=== PATIENT | male | born 1940 | race Caucasian/White ===

== ENCOUNTER 2017-01-30 10:10 | Emergency (ER) | payer OTHER, BC ==
--- NOTE | 2017-01-30 10:19 | PDOC ---
History of Present Illness - General Chief Complaint: Pain Stated Complaint: LEFT HIP PAIN Time Seen by Provider: 01/30/17 10:19 History Source: Patient Exam Limitations: No Limitations - History of Present Illness Initial Comments: 01/30/17 10:29 The patient is a 76-year-old male with a significant past medical history of hypertension, hyperlipidemia, who presents to the emergency department with left -sided, posterior hip pain that began while he was playing tennis. He states that he was running, and stretched for a backhand shot, pivoting at the left hip , and experienced sudden, severe, sharp and stabbing pain. Since that time, he has had continued pain. It is exacerbated by changing position. He denies lower extremity weakness or paresthesias. He did not have blunt trauma. He denies any previous left hip pain. He is able to bear weight on the left lower extremity without any increase in the pain. Past History - Past Medical History Allergies/Adverse Reactions: Allergies Allergy/AdvReac Type Severity Reaction Status Date / Time scallops Allergy Unknown Verified 01/30/17 10:22 Home Medications: Ambulatory Orders Meclizine HCl [Antivert -] 25 mg PO Q6H PRN #10 tablet 07/10/16 Allopurinol [Zyloprim -] 100 mg PO DAILY 01/30/17 Amlodipine Besylate [Norvasc -] 5 mg PO DAILY 01/30/17 Aspirin/Calcium Carbonate/Mag [Aspirin Buffered 325 mg Tab] 325 mg PO DAILY Atorvastatin Ca [Lipitor] 80 mg PO HS 01/30/17 Clopidogrel Bisulfate [Plavix -] 75 mg PO DAILY 01/30/17 Diazepam [Valium] 5 mg PO Q8H PRN #15 tablet MDD 3 01/30/17 Glucosamine Sulfate Dipot Chlr [Glucosamine] 1,000 mg PO DAILY 01/30/17 Magnesium Oxide [Magnesium] 500 mg PO DAILY 01/30/17 Methylprednisolone [Medrol Dose Yoseph] 4 mg PO ASDIR 01/30/17 Metoprolol Succinate [Toprol XL -] 25 mg PO BID 01/30/17 Naproxen [Naprosyn] 500 mg PO BID PRN #20 tablet 01/30/17 Nitroglycerin [Nitrostat] 0.4 mg SL PRN PRN 01/30/17 Anemia: No Asthma: No Cancer: No Cardiac Disorders: No CVA: No COPD: No CHF: No Dementia: No Diabetes: No GI Disorders: Yes (COLONIC POLYPS) Disorders: No HTN: No Hypercholesterolemia: Yes Liver Disease: No Seizures: No Thyroid Disease: No - Surgical History Abdominal Surgery: No Appendectomy: No Cardiac Surgery: No Cholecystectomy: No Lung Surgery: No Neurologic Surgery: No Orthopedic Surgery: Yes - Psycho/Social/Smoking Cessation Hx Anxiety: No Suicidal Ideation: No Smoking History: Never smoked Have you smoked in the past 12 months: No Hx Alcohol Use: No Drug/Substance Use Hx: No Substance Use Type: Alcohol Hx Substance Use Treatment: No Review of Systems - Review of Systems Comments:: 01/30/17 10:30 CONSTITUTIONAL: Absent: fever, chills, fatigue EYES: Absent: visual changes ENT: Absent: ear pain, sore throat CARDIOVASCULAR: Absent: chest pain, palpitations, loss of consciousness RESPIRATORY: Absent: cough, SOB GI: Absent: abdominal pain, nausea, vomiting, constipation, diarrhea GENITOURINARY: Absent: dysuria, frequency, hematuria MUSKULOSKELETAL: Present: See history of present illness Absent: back pain SKIN: Absent: rash NEURO: Absent: headache, dizziness *Physical Exam - Physical Exam Comments: 01/30/17 10:30 GENERAL: Well-appearing, well-nourished. No apparent distress. HEENT: Normocephalic, atraumatic. PERRL, EOM intact. CARDIOVASCULAR: Normal S1, S2. Regular rate and rhythm. PULMONARY: Clear to auscultation bilaterally. ABDOMEN: Soft, non-distended, non-tender. EXTREMITIES: There is no tenderness over the bony prominences the left hip and pelvis, or of the left femur and knee. His pain is reproducible when he pivots at the waist, flexes or extends, or rotates. There is reproducible tenderness to palpation when the soft tissue just posterior to the hip joint is palpated. No gross deformities. SKIN: Warm, dry. No rash NEUROLOGICAL: No focal neurological deficits. Medical Decision Making - Medical Decision Making 01/30/17 10:32 The patient is well-appearing and in no acute distress His mechanism of injury and clinical presentation are quite consistent with muscle strain Will obtain x-ray to rule out occult fracture Clinical impression: Avulsion of the left lesser trochanter Left lateral gluteal muscle strain I discussed the physical exam findings, ancillary test results and final diagnoses with the patient. I answered all of the patient's questions. The patient was satisfied with the care received and felt comfortable with the discharge plan and treatment plan. The patient will call their primary care physician within 24 hours to arrange follow-up and will return to the Emergency Department with any new, persistent or worsening symptoms. 01/30/17 11:01 *DC/Admit/Observation/Transfer Diagnosis at time of Disposition: Muscle strain, Closed avulsion fracture of lesser trochanter of femur - Discharge Dispostion Disposition: HOME Condition at time of disposition: Improved - Prescriptions Prescriptions: Naproxen [Naprosyn] 500 mg PO BID PRN #20 tablet PRN Reason: Pain Diazepam [Valium] 5 mg PO Q8H PRN #15 tablet MDD 3 PRN Reason: Pain - Referrals Referrals: Delfina Winston [Primary Care Provider] - Gerber Thomas MD [Staff Physician] - Call tomorrow Justin Lechuga MD [Staff Physician] - Call tomorrow - Patient Instructions Printed Discharge Instructions: DI for Gluteal Strain, DI for Femoral Fracture Additional Instructions: The x-ray shows that you have an avulsion fracture of the lesser trochanter of the left femur. This was probably caused by strain placed on the bone from the muscle. It is very important that you follow-up with orthopedics for further treatment. I referred you to Dr. Thomas and Dr. Lechuga. Both are orthopedic surgeons. You can see whom ever you prefer. Return to the emergency department immediately with ANY new, persistent or worsening symptoms. You MUST call and follow up with your doctor tomorrow. Please make sure your doctor reviews the results of your emergency department evaluation. Please take the Naprosyn with food and a large glass of water. It is important that you also check your blood pressure while taking it, as it can lead to elevated blood pressures. - Post Discharge Activity Work/School Note: Back to Work
[2017-01-30 10:30] VITALS: BP 150/88; PULSE 55; TEMP 98.5; BMI 29.9
[2017-01-30] MEDS ORDERED: NAPROXEN 500 MG TABLET (FP) PO ONE (10:33)
[2017-01-30] MEDS ORDERED: NAPROXEN 500 MG TABLET (FP) ONE (10:35)
== END 2017-01-30 11:23 | disposition home or self-care (01) ==
LOC: FER 10:10
DX: S72.125A Nondisplaced fracture of lesser trochanter of left femur, initial encounter for closed fracture (principal); E78.00 Pure hypercholesterolemia, unspecified; T14.8 Other injury of unspecified body region; I10 Essential (primary) hypertension; X58.XXXA Exposure to other specified factors, initial encounter; Y93.73 Activity, racquet and hand sports; Y92.9 Unspecified place or not applicable
CPT/HCPCS: 73523-TC; 99282-25

== ENCOUNTER 2020-04-19 07:59 | Emergency (ER) | payer OTHER, BC ==
[2020-04-19 08:07] VITALS: BP 152/96; PULSE 66; TEMP 98.1; BMI 29.9
--- NOTE | 2020-04-19 08:26 | PDOC ---
History of Present Illness - General Chief Complaint: Edema Stated Complaint: right hand swelling Time Seen by Provider: 04/19/20 08:19 History Source: Patient Exam Limitations: No Limitations - History of Present Illness Initial Comments: 04/29/20 02:45 79YOM p/w right index, middle, and ring finger numbness, pain, and swelling. He notes he plays tennis and has been playing more frequently and for longer than usual lately. He played for hours over the past couple of days. He uses his right hand to hold the tennis racket and also is right hand dominant. 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 No chest pain, SOB, abdominal pain, back pain, f/c/n/vc/d/c. No skin changes, no known injury. Past History - Medical History Allergies/Adverse Reactions: Allergies Allergy/AdvReac Type Severity Reaction Status Date / Time scallops Allergy Unknown Verified 01/30/17 10:22 Home Medications: Ambulatory Orders Meclizine HCl [Antivert -] 25 mg PO Q6H PRN #10 tablet 07/10/16 Allopurinol [Zyloprim -] 100 mg PO DAILY 01/30/17 Amlodipine Besylate [Norvasc -] 5 mg PO DAILY 01/30/17 Aspirin/Calcium Carbonate/Mag [Aspirin Buffered 325 mg Tab] 325 mg PO DAILY 01/30/17 Atorvastatin Ca [Lipitor] 80 mg PO HS 01/30/17 Clopidogrel Bisulfate [Plavix -] 75 mg PO DAILY 01/30/17 Diazepam [Valium] 5 mg PO Q8H PRN #15 tablet MDD 3 01/30/17 Glucosamine Sulfate Dipot Chlr [Glucosamine] 1,000 mg PO DAILY 01/30/17 Magnesium Oxide [Magnesium] 500 mg PO DAILY 01/30/17 Metoprolol Succinate [Toprol XL -] 25 mg PO BID 01/30/17 Naproxen [Naprosyn] 500 mg PO BID PRN #20 tablet 01/30/17 Nitroglycerin [Nitrostat] 0.4 mg SL PRN PRN 01/30/17 Methylprednisolone [Medrol Dose Yoseph] 4 mg PO ASDIR #21 tablet 04/19/20 Anemia: No Asthma: No Cancer: No Cardiac Disorders: No CVA: No COPD: No CHF: No Dementia: No Diabetes: No GI Disorders: Yes (COLONIC POLYPS) Disorders: No HTN: No Hypercholesterolemia: Yes Liver Disease: No Seizures: No Thyroid Disease: No - Surgical History Abdominal Surgery: No Appendectomy: No Cardiac Surgery: No Cholecystectomy: No Lung Surgery: No Neurologic Surgery: No Orthopedic Surgery: Yes - Immunization History Immunization Up to Date: Yes - Psycho-Social/Smoking History Smoking History: Never smoked Have you smoked in the past 12 months: No - Substance Abuse Hx (Audit-C & DAST Scrn) How often the patient has a drink containing alcohol: Monthly or less Number of drinks the patient has on a typical day: 1 or 2 How often the patient has six or more drinks on one occasion: Never Score: In Men: 4 or > Positive; In Women: 3 or > Positive: 1 Screen Result (Pos requires Nsg. Audit-10AR): Negative In the last yr the pt used illegal drug/Rx for NonMed reason: No Score: Yes response is considered Positive: 0 Screen Result (Positive result requires Nsg. DAST-10): Negative Review of Systems - Review of Systems Able to Perform ROS?: Yes Comments:: 04/29/20 02:51 GEN: no fever, chills, malaise, or generalized weakness HEENT: no ear pain, congestion, sore throat, vision change, or eye pain CV: no chest pain, palpitations, lightheadedness, syncope, or edema RESP: no SOB, wheezing, or cough GI: no abdominal pain, nausea, vomiting, diarrhea, constipation, or rectal bleed : no dysuria, hematuria, or discharge MSK: right finger numbness/tingling/discomfort/swelling, otherwise no muscle weakness or pain, no joint swelling or pain NEURO: no headache, vertigo, numbness, tingling, or focal weakness PSYCH: no SI, HI, or behavior change SKIN: no jaundice, rash, lesions, or unexplained bruises ROS otherwise negative except as noted in HPI *Physical Exam - Vital Signs Last Vital Signs Temp Pulse Resp BP Pulse Ox 98.1 F 66 16 152/96 100 04/19/20 08:01 04/19/20 08:01 04/19/20 08:01 04/19/20 08:01 04/19/20 08:01 - Physical Exam GENERAL: very pleasant and well-appearing, A/Ox4, no distress, answers questions appropriately HEENT: PERRLA, EOMI, moist mucous membranes NECK/BACK: no midline ttp, no spinal step-off or deformity, no hematoma, full ROM, neck supple CARDIOVASCULAR: regular rate/rhythm, no MGR, strong peripheral pulses, capillary refill <2 seconds, extremities wwp, no edema, radial pulses and ulnar pulses 2+ bilaterally LUNGS/RESPIRATORY: no respiratory distress, CTAB GI/ABDOMEN: symmetric [id number], normoactive BS, soft, no ttp, no midline pulsatile masses : no CVA tenderness MSK/EXTREMITIES: right hand with subjective mild numbness to index, middle, and ring finger palmar surfaces, r/m/u nerve motor intact, tapping the carpal tunnel on the right reproduces numbness/tingling, minimal swelling of digits, otherwise no muscle atrophy, no acute deformity SKIN: warm and dry, no pallor, no jaundice, no rash, no pathologic-appearing bruising, no skin breakdown, no cuts, no lesions NEUROLOGICAL: GCS 15, CN II-XII grossly intact, 5/5 strength proximally and distally, no facial droop Medical Decision Making - Medical Decision Making 04/29/20 02:54 79YOM p/w palm and finger numbness/tingling on right side, patient is right hand dominant and playing tennis frequently. Initial Vital Signs Temp Pulse Resp BP Pulse Ox 98.1 F 66 16 152/96 100 04/19/20 08:01 04/19/20 08:01 04/19/20 08:01 04/19/20 08:01 04/19/20 08:01 Very likely carpel tunnel syndrome, or median neuropathy. Unlikely any other more serious etiology as he has no ssx of cervical radiculopathy (C6-7), brac hial plexopathy, motor neuron disease (e.g. ALS), ligamentous injury, compartment syndrome, CVA/TIA, etc. Provider Orders Category Date Time Status Ibuprofen [Motrin -] Medication 04/19/20 08:36 Discontinued 600 mg PO .STK-MED ONE Ibuprofen [Motrin -] Medication 04/19/20 08:33 Discontinued 600 mg PO ONCE ONE Medications Discontinued Medications Generic Name Dose Route Start Last Admin Trade Name Freq PRN Reason Stop Dose Admin Ibuprofen 600 mg 04/19/20 08:33 Motrin - PO 04/19/20 08:34 ONCE ONE Ibuprofen Confirm 04/19/20 08:36 Motrin - Administered 04/19/20 08:37 Dose 600 mg PO .STK-MED ONE Patient is given a wrist splint and feels much better. This Pt has gotten significant relief of symptoms while in the ED. On last reassessment, vitals are wnl, pain is reasonably controlled, and exam is benign. Workup is not concerning for emergency-level pathology at this time. This Pt is appropriate for discharge with close outPt follow up. They are comfortable with this plan and will follow up with PCP in 1-3 days. Specific return precautions are discussed and they will come back to the ER if necessary. Discharge - Discharge Information Problems reviewed: Yes Clinical Impression/Diagnosis: Carpal tunnel syndrome of right wrist Condition: Stable Disposition: HOME - Admission No - Additional Discharge Information Prescriptions: Methylprednisolone [Medrol Dose Yoseph] 4 mg PO ASDIR #21 tablet - Follow up/Referral Referrals: Adryan Sabillon DO [Staff Physician] - Syed Rodriguez DO [Staff Physician] - Zack Silverio MD [Staff Physician] - - Patient Discharge Instructions Additional Instructions: You were seen in the ER for right finger numbness and swelling of the 2nd, 3rd, and 4th digits. We did a thorough history and physical exam, diagnosed you with right carpal tunnel syndrome, and gave you a wrist splint and Motrin to help. After our assessment, we do not believe you are having a medical emergency at this time, and we believe you are safe to go home. Please follow up with your primary care provider early next week. Call their clinic as soon as possible, tell them you were seen in the ER, and tell them you need an appointment. If you have continued symptoms in 2 weeks, please also follow up with the orthopedist clinic (we are providing referral information in this information packet). If you have any new or worsening symptoms, especially worsening swelling of those fingers, significant pain, or numbness that spreads up to your right shoulder or other areas, please come back to the ER at any time (24 hours a day). If you are having severe or life threatening symptoms, or symptoms that make it unsafe to drive or have someone drive you, please call 911. To take care of your carpal tunnel syndrome at home, do the following: Do not overuse the affected wrist - try not to hold your phone with it, rest it on tables/desks, etc. Use the wrist splint we gave you, especially at night, and make sure it is not putting too much pressure on your wrist. 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 Also use the following [id number] medication regimen... Use the following medication schedule during waking hours at home for the next week: At hour 0 (when you get home), take Tylenol 650 mg (two regular strength pills) At hour 3, take ibuprofen 600 mg (three regular strength pills) At hour 6, take Tylenol 650 mg (two regular strength pills) At hour 9, take ibuprofen 600 mg (three regular strength pills) Etc. - Post Discharge Activity
[2020-04-19] MEDS ORDERED: IBUPROFEN 600 MG TABLET (FP) PO ONE ×2 (08:33→08:36)
== END 2020-04-19 08:45 | disposition home or self-care (01) ==
LOC: FER 07:59
DX: G56.01 Carpal tunnel syndrome, right upper limb (principal)
CPT/HCPCS: 99283-25

== ENCOUNTER 2020-06-26 15:59 | Emergency (ER) | payer OTHER, BC ==
[2020-06-26 16:51] VITALS: BP 149/88; PULSE 72; TEMP 99.3; BMI 25.7
[2020-06-26 18:18] LABS: ALBUMIN 3.9 g/dl (3.4-5.0); ALK PHOS 70 U/L (45-117); ANION GAP 7 MMOL/L (8-16); BILIRUBIN,TOTAL 0.5 mg/dl (0.2-1); CALCIUM 8.8 mg/dl (8.5-10); CHLORIDE 110 mmol/L (98-107); CO2 23 mmol/L (21-32); CREATININE 1.1 mg/dl (0.55-1.3); GLUCOSE,RANDOM 110 mg/dl (74-106); POTASSIUM 4.1 mmol/L (3.5-5.1); SGOT/AST 22 U/L (15-37); SGPT/ALT 28 U/L (13-61); SODIUM 140 mmol/L (136-145); TOT PROT 6.8 g/dl (6.4-8.2)
[2020-06-26 18:19] LABS: BASO % 1.6 % (0-2.0); EOS % 1.6 % (0-4.5); HEMATOCRIT 41.4 % (35.4-49); LYMPH % 27.3 % (8-40); MCH 34.4 pg (25.7-33.7); MCHC 33.8 g/dl (32.0-35.9); MEAN CELL VOLUME 101.9 fl (80-96); MEAN PLT VOLUME 11.4 fl (7.5-11.1); MONO % 6.6 % (3.8-10.2); NEUT % 62.9 % (42.8-82.8); PLATELET COUNT 152 K/MM3 (134-434); RBC 4.06 M/mm3 (4.00-5.60); RDW 13.4 % (11.9-15.9); WHITE BLOOD COUNT 8.9 K/mm3 (4.0-10.8)
== END 2020-06-26 20:16 | disposition home or self-care (01) ==
LOC: FER 15:59
DX: R60.9 Edema, unspecified (principal)
CPT/HCPCS: 36415; 71046-TC-FY; 80053; 82550; 84484; 85025; 93005; 99284-25

== ENCOUNTER 2020-07-01 08:55 | Emergency (ER) | payer OTHER, BC ==
[2020-07-01 09:21] VITALS: BP 128/62; PULSE 75; TEMP 99; BMI 29.9
[2020-07-01] MEDS ORDERED: ACETAMINOPHEN 500 MG TABLET (FP) ONE (09:23)
[2020-07-01] MEDS ORDERED: ACETAMINOPHEN 500 MG TABLET (FP) PO ONE (09:23)
== END 2020-07-01 11:11 | disposition home or self-care (01) ==
LOC: FER 08:55
DX: M25.521 Pain in right elbow (principal)
CPT/HCPCS: 73060-TC-RT-FY; 73070-TC-RT-FY; 73090-TC-RT-FY; 99284-25

== ENCOUNTER 2020-07-22 09:37 | Emergency (ER) | payer OTHER, BC ==
[2020-07-22 09:55] VITALS: BMI 29.1
[2020-07-22 12:01] VITALS: BP 143/77; PULSE 67; TEMP 97.2
== END 2020-07-22 12:12 | disposition home or self-care (01) ==
LOC: FER 09:37
DX: R20.2 Paresthesia of skin (principal); M65.331 Trigger finger, right middle finger
CPT/HCPCS: 70450-TC; 93005; 99284-25

== ENCOUNTER 2022-07-30 13:35 | Emergency (ER) | payer OTHER, BC ==
[2022-07-30] MEDS ORDERED: ACETAMINOPHEN 1000 MG/100 ML BAG IVPB ONE (13:58)
[2022-07-30] MEDS ORDERED: SODIUM CHLORIDE 0.9% 1000 ML INFUS.BAG IV ONE (13:58)
[2022-07-30 13:59] VITALS: RESP 16; BMI 28.5
[2022-07-30] MEDS ORDERED: ACETAMINOPHEN INJECTION 100 ML IVPB ONE (14:10)
[2022-07-30 14:32] LABS: HEMATOCRIT 44.3 % (35.4-49); HEMOGLOBIN 15.1 G/dL (11.7-16.9); MCH 35.3 pg (25.7-33.7); MCHC 34.1 g/dl (32.0-35.9); MEAN CELL VOLUME 103.5 fl (80-96); MEAN PLT VOLUME 9.1 fl (7.5-11.1); PLATELET COUNT 151.8 10^3/uL (134-434); RBC 4.28 10^6/uL (4.00-5.60); RDW 14.4 % (11.9-15.9); WHITE BLOOD COUNT 10.8 10^3/uL (4.0-10.8)
[2022-07-30 14:47] LABS: ALBUMIN 4.1 g/dl (3.4-5.0); BILIRUBIN,TOTAL 2.7 mg/dl (0.2-1); CALCIUM 8.9 mg/dl (8.5-10); CREATININE 1.2 mg/dl (0.55-1.3); TOT PROT 7.7 g/dl (6.4-8.2)
[2022-07-30 16:20] VITALS: BP 164/89; PULSE 64; TEMP 98.8
== END 2022-07-30 16:26 | disposition home or self-care (01) ==
LOC: FER 13:35
PROC: 3E033GC Introduction of Other Therapeutic Substance into Peripheral Vein, Percutaneous Approach (ICD-10-PCS; principal; 2022-07-30)
DX: M54.50 Low back pain, unspecified (principal)
CPT/HCPCS: 0241U-QW; 36415; 72131-TC; 74177-TC; 80053; 81003; 81015; 85027; 87086; 99285-25; Q9967

== ENCOUNTER 2024-01-26 08:01 | Emergency (ER) | payer OTHER, BC ==
[2024-01-26 08:22] VITALS: BP 142/93; PULSE 69; RESP 17; TEMP 98.4; BMI 27.8
== END 2024-01-26 08:53 | disposition home or self-care (01) ==
LOC: FER 08:01
DX: L03.317 Cellulitis of buttock (principal)
CPT/HCPCS: 99283-25

== ENCOUNTER 2024-04-10 15:26 | Emergency (ER) | payer OTHER, BC ==
[2024-04-10 15:40] VITALS: BP 146/74; PULSE 65; RESP 18; TEMP 99; BMI 27.8
[2024-04-10 16:26] LABS: ALBUMIN 3.9 g/dl (3.4-5.0); BILIRUBIN,TOTAL 0.5 mg/dl (0.2-1); CREATININE 1.2 mg/dl (0.6-1.3); POTASSIUM 4.4 mmol/L (3.5-5.1); TOT PROT 6.4 g/dl (6.4-8.2)
[2024-04-10 16:34] LABS: HEMATOCRIT 42.1 % (35.4-49); HEMOGLOBIN 13.7 G/dL (11.7-16.9); MCH 34.6 pg (25.7-33.7); MCHC 32.5 g/dl (32.0-35.9); MEAN CELL VOLUME 106.2 fl (80-96); MEAN PLT VOLUME 9.7 fl (7.5-11.1); PLATELET COUNT 136.6 10^3/uL (134-434); RBC 3.96 10^6/uL (4.00-5.60); RDW 13.9 % (11.9-15.9); WHITE BLOOD COUNT 8.3 10^3/uL (4.0-10.8)
[2024-04-10 16:55] LABS: ANISOCYTOSIS 1+; PLATELET ESTIMATE ADEQUATE
== END 2024-04-10 19:30 | disposition home or self-care (01) ==
LOC: FER 15:26
DX: S39.012A Strain of muscle, fascia and tendon of lower back, initial encounter (principal); M54.2 Cervicalgia; X50.1XXA Overexertion from prolonged static or awkward postures, initial encounter; Y93.73 Activity, racquet and hand sports
CPT/HCPCS: 36415; 71045-TC-FY; 80053; 81003; 81015; 82550; 84484; 85027; 87086; 93005; 99284-25

== ENCOUNTER 2024-04-13 19:43 | Emergency (ER) | payer OTHER, BC ==
[2024-04-13 20:02] VITALS: BP 150/85; PULSE 67; RESP 16; TEMP 98.4; BMI 27.6
[2024-04-13] MEDS ORDERED: predniSONE 20 MG TABLET (UD) ONE (20:20)
[2024-04-13] MEDS ORDERED: KETOROLAC TROMETHAMINE 60 MG/2 ML VIAL ONE (20:20)
[2024-04-13] MEDS ORDERED: LIDOCAINE 5% TOPICAL PATCH ONE (20:20)
[2024-04-13] MEDS: LIDOCAINE 5% TOPICAL PATCH TP ONE (20:41)
[2024-04-13] MEDS: KETOROLAC TROMETHAMINE 60 MG/2 ML VIAL IM ONE (20:42)
[2024-04-13] MEDS: predniSONE 20 MG TABLET (UD) PO ONE (20:42)
[2024-04-13] MEDS ORDERED: CYCLOBENZAPRINE HCL 5 MG TABLET ONE (21:36)
[2024-04-13] MEDS: CYCLOBENZAPRINE HCL 10 MG TABLET (FP) PO ONE (21:39)
[2024-04-14] MEDS ORDERED: LIDOCAINE PATCH REMOVAL MC SCH (08:00)
== END 2024-04-13 21:52 | disposition home or self-care (01) ==
LOC: FER 19:43
PROC: 3E0133Z Introduction of Anti-inflammatory into Subcutaneous Tissue, Percutaneous Approach (ICD-10-PCS; principal; 2024-04-13)
DX: M54.50 Low back pain, unspecified (principal)
CPT/HCPCS: 72100-TC-FY; 99284-25

== ENCOUNTER 2024-11-04 11:07 | Emergency (ER) | payer OTHER, BC ==
[2024-11-04 11:16] VITALS: BP 139/75; PULSE 76; RESP 18; TEMP 98.4; BMI 27.8
[2024-11-04] MEDS: BACITRACIN ZINC 15 GM TUBE TOPICAL OINTMENT TP ONE (11:25)
== END 2024-11-04 11:35 | disposition home or self-care (01) ==
LOC: FER 11:07
DX: S70.211A Abrasion, right hip, initial encounter (principal); R21 Rash and other nonspecific skin eruption; X58.XXXA Exposure to other specified factors, initial encounter
CPT/HCPCS: 99283-25

== ENCOUNTER 2024-12-15 10:37 | Emergency (ER) | payer OTHER, BC ==
[2024-12-15 10:57] VITALS: BP 133/79; PULSE 79; RESP 18; TEMP 97.8; BMI 27.8
[2024-12-15] MEDS ORDERED: SULFAMETHOXAZOLE/TRIMETHOPRIM 800MG/160MG D.S. TABLET PO ONE (12:32)
[2024-12-15] MEDS ORDERED: SULFAMETHOXAZOLE/TRIMETHOPRIM 800MG/160MG D.S. TABLET ONE (12:38)
== END 2024-12-15 12:49 | disposition home or self-care (01) ==
LOC: FER 10:37
DX: L72.9 Follicular cyst of the skin and subcutaneous tissue, unspecified (principal); R22.2 Localized swelling, mass and lump, trunk; L53.9 Erythematous condition, unspecified
CPT/HCPCS: 99283-25